=== PATIENT | female | born 1995 | race African-American/Black ===

== ENCOUNTER 2018-09-11 17:22 | Emergency (ER) | payer MEDICAID ==
[~2018-09-11] VITALS: Ht 165.1 cm; Wt 81.6 kg
[~2018-09-11 17:22] MED LIST: PREN-96 PO
[2018-09-11 18:19] LABS: Basophils # (auto) 0 uL; Basophils % (auto) 0.2 % (0.0-2.0); Eosinophils # (auto) 0.1 uL; Eosinophils % (auto) 0.4 % (0.0-7.0); Hematocrit 36.2 % (36.0-46.0); Hemoglobin 11.8 g/dL (12.2-16.2); Lymphocytes # (auto) 1.3 uL; Lymphocytes % (auto) 6.8 % (10.0-50.0); Mean Corpuscular Hemoglobin 27.2 pg (28.0-32.0); Mean Corpuscular Hgb Conc. 32.5 g/dL (32.0-36.0); Mean Corpuscular Volume 83.7 fL (80.0-100.0); Monocytes # (auto) 1.5 uL; Monocytes % (auto) 7.6 % (0.0-12.0); Neutrophils # (auto) 16.7 uL; Platelet Count (auto) 246 10^3/uL (140-450); Red Blood Cells 4.32 10^6/uL (4.0-5.20); Red Cell Distribution Width 14.3 % (11.8-14.3); White Blood Cell 19.6 10^3/uL (4.4-10.8)
[2018-09-11 18:37] LABS: Alanine Aminotransferase 20 U/L (13-56); Albumin 2.9 g/dL (3.4-5.0); Anion Gap 11 (5-15); Aspartate Aminotransferase 12 U/L (15-37); Blood Urea Nitrogen 17 mg/dL (7-18); Carbon Dioxide 21 mmol/L (21-32); Chloride 108 mmol/L (98-107); GFR African American 84 mL/min; GFR Non-African American 70 mL/min; Glucose 75 mg/dL (74-106); Potassium 3.4 mmol/L (3.5-5.1); Sodium 140 mmol/L (136-145)
[2018-09-11 18:40] LABS: Urine Bacteria FEW /hpf (None Seen); Urine Blood 2+ /uL (Negative); Urine Mucus FEW (None Seen); Urine WBC 386 /hpf (0 - 5); Urine WBC Clumps PRESENT /hpf (None Seen)
[2018-09-11 18:43] LABS: Alkaline Phosphatase 107 U/L (45-117); Bilirubin, Total 0.5 mg/dL (0.2-1.0); Calcium 8.1 mg/dL (8.5-10.1); Total Protein 7.3 g/dL (6.4-8.2)
[2018-09-11] MEDS ORDERED: cefTRIAXone 1GM/50ML D5W 50 ML IV ONE (20:00)
[2018-09-11] MEDS ORDERED: SODIUM CHLORIDE 0.9% 1,000 ML IV ONE (20:00)
[2018-09-11 21:43] VITALS: BP 125/65
== END 2018-09-11 21:45 | disposition home or self-care (01) ==
LOC: ER 17:24
DX: O86.20 Urinary tract infection following delivery, unspecified (principal); O90.89 Other complications of the puerperium, not elsewhere classified; D72.829 Elevated white blood cell count, unspecified
CPT/HCPCS: 36415; 80053; 81001; 84484; 85025; 96365; 99283; J0696; J7030

== ENCOUNTER 2024-11-12 13:50 | Emergency (ER) | payer MEDICAID ==
[~2024-11-12] VITALS: Ht 162.6 cm; Wt 72.0 kg
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
--- NOTE | 2024-11-12 16:23 | DVH ---
CT MAXILLOFACIAL WITHOUT Indication: fall EXAM DATE: 11/12/2024 02:59 PM COMPARISON: None TECHNIQUE: CT of the maxillofacial bones without intravenous contrast. RADIATION DOSE: CTDIvol: 65.83 mGy, DLP: 65.83 mGy*cm FINDINGS: Mastoids well pneumatized. Paranasal sinuses demonstrate mucosal thickening of the ethmoids and bilat eral maxillary sinuses. Mucosal thickening of the left sphenoid air cells. No facial region fracture identified. Ornamental device in the lingual region Left orbital preseptal and left facial region hematoma/contusion IMPRESSION: Left orbital preseptal and left facial region hematoma/contusion. Paranasal sinus disease.
[2024-11-12] MEDS ORDERED: AMOX500T3 PO (17:02)
[2024-11-12 22:25] VITALS: BP 132/87; PULSE 118; RESP 14; TEMP 97.7; O2SAT 99
[2024-11-12] MEDS: TETANUS-DIPTH-ACEL PERTUSSIS 0.5ML SYR Tdap IM ONE (23:32)
--- NOTE | 2024-11-14 13:22 | ECG ---
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
== END 2024-11-12 23:34 | disposition home or self-care (01) ==
LOC: ER 13:50
DX: S00.83XA Contusion of other part of head, initial encounter (principal); Z79.899 Other long term (current) drug therapy; V98.8XXA Other specified transport accidents, initial encounter; Y93.I9 Activity, other involving external motion; Y92.488 Other paved roadways as the place of occurrence of the external cause; Y99.8 Other external cause status
CPT/HCPCS: 70486; 90471; 90715; 93005